=== PATIENT | male | born 1985 | race Two or more races ===

== ENCOUNTER 2020-04-28 16:15 | Inpatient (IN) | payer OTHER ==
[~2020-04-28] VITALS: Ht 175.3 cm; Wt 74.8 kg
== END 2020-05-01 14:13 | disposition home or self-care (01) | DRG 866 ==
LOC: ER 16:15 → SEC-K 19:16 → MEDI 04-29 09:04 → MEDJ 04-29 09:04 → MEDI 04-29 09:04
PROVIDERS: ADMIT Internal Medicine; ATTEND Internal Medicine
DX: A90 Dengue fever [classical dengue] (principal); Z20.828 Contact with and (suspected) exposure to other viral communicable diseases

== ENCOUNTER 2021-07-21 12:22 | Emergency (ER) | payer OTHER ==
[~2021-07-21] VITALS: Ht 175.3 cm; Wt 72.6 kg
== END 2021-07-21 14:34 | disposition home or self-care (01) ==
LOC: ER 12:22
DX: M54.50 Low back pain, unspecified (principal); K29.70 Gastritis, unspecified, without bleeding

== ENCOUNTER 2021-08-04 09:52 | Emergency (ER) | payer OTHER ==
[~2021-08-04] VITALS: Ht 172.7 cm; Wt 72.6 kg
== END 2021-08-04 13:25 | disposition home or self-care (01) ==
LOC: ER 09:52
DX: R10.9 Unspecified abdominal pain (principal); Z91.013 Allergy to seafood

== ENCOUNTER 2021-09-21 21:04 | Inpatient (IN) | payer OTHER ==
[~2021-09-21] VITALS: Ht 175.3 cm; Wt 70.3 kg
[2021-09-28] MEDS ORDERED: METRONIDAZOLE500 MG PO (09:20)
[2021-09-28] MEDS ORDERED: MEDROLPACK PO (09:20)
[2021-09-28] MEDS ORDERED: CIPRO500 MG PO (09:20)
== END 2021-09-28 09:59 | disposition home or self-care (01) | DRG 392 ==
LOC: ER 21:04 → MEDI 09-22 13:23 → MEDJ 09-23 16:19 → MEDI 09-23 16:39
PROVIDERS: ADMIT Internal Medicine; ATTEND Internal Medicine
PROC: 3E0F7GC Introduction of Other Therapeutic Substance into Respiratory Tract, Via Natural or Artificial Opening (ICD-10-PCS; principal; 2021-09-23)
PROC: 8E0ZXY6 Isolation (ICD-10-PCS; 2021-09-23)
DX: K52.81 Eosinophilic gastritis or gastroenteritis (principal); E86.0 Dehydration; J45.998 Other asthma; Z20.822 Contact with and (suspected) exposure to COVID-19

== ENCOUNTER 2021-12-03 00:26 | Emergency (ER) | payer OTHER ==
[~2021-12-03] VITALS: Ht 172.7 cm; Wt 68.0 kg
[~2021-12-03 00:26] MED LIST: CIPRO500 MG PO; MEDROLPACK PO; METRONIDAZOLE500 MG PO
[2021-12-03] MEDS ORDERED: PEPCID20 MG PO (00:49)
== END 2021-12-03 09:51 | disposition home or self-care (01) ==
LOC: ER 00:26
DX: B34.9 Viral infection, unspecified (principal); E86.0 Dehydration; R10.84 Generalized abdominal pain; R11.10 Vomiting, unspecified; R30.0 Dysuria

== ENCOUNTER 2022-05-13 17:41 | Emergency (ER) | payer OTHER ==
[~2022-05-13] VITALS: Ht 165.1 cm; Wt 68.0 kg
[~2022-05-13 17:41] MED LIST changes: +PEPCID20 MG PO
== END 2022-05-14 02:48 | disposition home or self-care (01) ==
LOC: ER 17:41
DX: R10.84 Generalized abdominal pain (principal)

== ENCOUNTER 2022-09-05 11:33 | Emergency (ER) | payer OTHER ==
[~2022-09-05] VITALS: Ht 175.3 cm; Wt 63.5 kg
== END 2022-09-05 17:09 | disposition home or self-care (01) ==
LOC: ER 11:33
DX: R19.7 Diarrhea, unspecified (principal); Z85.038 Personal history of other malignant neoplasm of large intestine

== ENCOUNTER 2024-07-10 06:08 | Inpatient (IN) | payer OTHER ==
[~2024-07-10] VITALS: Ht 172.7 cm; Wt 62.6 kg
[2024-07-10] MEDS ORDERED: 0.9 % SODIUM CHLORIDE 1,000 ML IV ONE (07:15)
[2024-07-10] MEDS ORDERED: FAMOTIDINE/PF 20 MG/2 ML VIAL IV PUSH STA (07:15)
[2024-07-10] MEDS ORDERED: ONDANSETRON HCL 2 MG/ML VIAL IV STA (07:15)
[2024-07-10] MEDS ORDERED: ONDANSETRON HCL 2 MG/ML VIAL ONE (07:30)
[2024-07-10] MEDS ORDERED: FAMOTIDINE/PF 20 MG/2 ML VIAL ONE (07:31)
[2024-07-10] MEDS ORDERED: MEPERIDINE HCL/PF 50 MG/ML VIAL IM STA (07:44)
[2024-07-10 07:50] LABS: HEMATOCRIT 32.7 % (39.0-48.0); MEAN CELL VOLUME 81.5 fL (80.0-100.00); MEAN CORPUSCULAR HEMOGLOBIN 27.3 pg (27.00-32.0); MEAN CORPUSCULAR HGB CONC 33.5 g/dl (32.0-36.0); PLATELET COUNT 728 K/uL (150-450); RED BLOOD COUNT 4.02 M/uL (4.00-6.00)
[2024-07-10 07:52] LABS: RED CELL DISTRIBUTION WIDTH 19.4 % (11.5-14.5)
[2024-07-10] MEDS ORDERED: ALBUTEROL SULFATE 3 ML/2.5 MG AMPUL.NEB IH STA (08:00)
[2024-07-10] MEDS ORDERED: CEFTRIAXONE SODIUM 1,000 MG VIAL IV STA (08:02)
[2024-07-10] MEDS ORDERED: ALBUTEROL SULFATE 3 ML/2.5 MG AMPUL.NEB IH ONE ×2 (08:10→12:52)
[2024-07-10] MEDS ORDERED: CEFTRIAXONE SODIUM 2,000 MG VIAL ONE ×2 (08:15→15:18)
[2024-07-10] MEDS ORDERED: CEFTRIAXONE SODIUM 1,000 MG VIAL ONE (08:17)
[2024-07-10 08:30] LABS: INR 1.02; PROTHROMBIN TIME 11.1 SECONDS (9.0-11.5)
[2024-07-10 08:31] LABS: ABG PH 7.414 (7.35-7.45); ABG pCO2 45.8 mmHg (35-45); BASE EXCESS 3.4 mmol/l; BICARBONATE 28.7 mmol/l (23-25); SaO2 89.9 %; Tco2 30.1 mmol/l
[2024-07-10 09:05] LABS: URINE APPEARANCE Cloudy; URINE BILIRRUBIN Negative (NEGATIVE); URINE BLOOD Large; URINE COLOR Yellow; URINE GLUCOSE Negative (NEGATIVE); URINE KETONE Negative (NEGATIVE); URINE LEUKOCYTE Large; URINE NITRATE Negative
[2024-07-10 09:06] LABS: URINE CAST 12.96 uL (0.0-1.40); URINE EPITHELIAL CELLS 25.3 uL (0.0-38.8); URINE RBC 66.1 uL (0.0-20.8); URINE WBC 485.1 uL (0.0-23.2)
[2024-07-10 09:07] LABS: URINE BACTERIA > 9821.5 uL (0.0-1933); URINE PROTEIN 100 (NEGATIVE)
[2024-07-10 09:21] LABS: URINE CRYSTALS MANY /HPF; URINE YEAST FEW /hpf
[2024-07-10 09:52] LABS: ABG PO2 56.9 mmHg (80-100); allen test SATISFACTORY; o2 21 %; puncture site RADIAL RIGHT
[2024-07-10 10:00] LABS: ALBUMIN 2.3 gm/dL (3.4-5.0); BILIRUBIN TOTAL 0.47 mg/dL (0.3-1.2); CALCIUM 8.9 mg/dL (8.5-10.1); CREATININE SERUM 0.38 mg/dL (0.70-1.30); GFR 254.09; GLOBULINA 4.7 G/DL (2.4-3.5); POTASSIUM 4.08 mEq/L (3.5-5.1)
[2024-07-10] MEDS ORDERED: ALBUTEROL SULFATE 3 ML/2.5 MG AMPUL.NEB IH SCH (10:00)
[2024-07-10] MEDS ORDERED: CEFTRIAXONE SODIUM 2,000 MG in 0.9 % SODIUM CHLORIDE 100 ML IV SCH (13:11)
[2024-07-10] MEDS ORDERED: ACETAMINOPHEN 325 MG TABLET PO PRN (13:15)
[2024-07-10] MEDS ORDERED: 0.9 % SODIUM CHLORIDE 1,000 ML IV SCH (13:30)
[2024-07-10] MEDS ORDERED: MEPERIDINE HCL/PF 50 MG/ML VIAL IM PRN (13:45)
[2024-07-10 16:17] VITALS: BP 143/97; O2SAT 98
[2024-07-10] MEDS ORDERED: ACETAMINOPHEN 500 MG GEL..CAP PO PRN (18:45)
[2024-07-10 22:59] VITALS: BP 120/92
[2024-07-11 09:02] VITALS: BP 139/99
[2024-07-11 17:36] VITALS: BP 140/87; O2SAT 98
[2024-07-12 02:41] VITALS: BP 140/93
[2024-07-12 09:08] VITALS: BP 140/80
[2024-07-12] MEDS ORDERED: FAMOTIDINE/PF 20 MG/2 ML VIAL IV SCH (12:08)
[2024-07-12] MEDS ORDERED: METOCLOPRAMIDE HCL 5 MG/ML VIAL IV PRN (12:15)
[2024-07-12 16:00] VITALS: BP 131/90
[2024-07-13 02:03] VITALS: BP 142/99; O2SAT 97
[2024-07-13 08:55] VITALS: BP 146/100; O2SAT 95
[2024-07-13 16:00] VITALS: BP 137/98
[2024-07-13] MEDS ORDERED: LACTULOSE 20 G/30 ML BLIST.PACK PO NR (17:00)
[2024-07-13] MEDS ORDERED: MAGNESIUM HYDROXIDE 30 ML BLIST.PACK PO NR (17:00)
[2024-07-13] MEDS ORDERED: MINERAL OIL 30 ML BLIST.PACK PO NR (17:00)
[2024-07-14 01:43] VITALS: BP 137/98
[2024-07-14 07:12] LABS: HEMATOCRIT 31.9 % (39.0-48.0); HEMOGLOBIN 10.5 g/dL (13-16.00); MEAN CELL VOLUME 82.5 fL (80.0-100.00); MEAN CORPUSCULAR HEMOGLOBIN 27.1 pg (27.00-32.0); MEAN CORPUSCULAR HGB CONC 32.9 g/dl (32.0-36.0); PLATELET COUNT 547 K/uL (150-450); RED BLOOD COUNT 3.87 M/uL (4.00-6.00); RED CELL DISTRIBUTION WIDTH 20.1 % (11.5-14.5)
[2024-07-14 07:14] LABS: ALBUMIN 2.3 gm/dL (3.4-5.0); BILIRUBIN TOTAL 0.42 mg/dL (0.3-1.2); CALCIUM 8.7 mg/dL (8.5-10.1); CREATININE SERUM 0.37 mg/dL (0.70-1.30); GFR 262.03; GLOBULINA 4.4 G/DL (2.4-3.5); POTASSIUM 3.83 mEq/L (3.5-5.1); TOTAL PROTEIN 6.7 gm/dL (6.4-8.2)
[2024-07-14 08:45] VITALS: BP 136/94; O2SAT 98
[2024-07-14] MEDS ORDERED: ALBUTEROL SULFATE 3 ML/2.5 MG AMPUL.NEB IH SCH (11:14)
[2024-07-14] MEDS ORDERED: MEPERIDINE HCL/PF 50 MG/ML VIAL IM PRN (14:30)
[2024-07-14 17:21] VITALS: BP 142/104; O2SAT 95
[2024-07-15 00:43] VITALS: BP 152/106; O2SAT 100
[2024-07-15 04:29] VITALS: BP 149/96
[2024-07-15 08:34] VITALS: BP 142/103; O2SAT 99
== END 2024-07-15 10:13 | disposition home or self-care (01) | DRG 690 ==
LOC: ER 06:10 → MEDI 14:23
PROVIDERS: General Practice; ADMIT Internal Medicine; ATTEND Internal Medicine
PROC: BW24ZZZ Computerized Tomography (CT Scan) of Chest and Abdomen (ICD-10-PCS; principal; 2024-07-10)
PROC: BW24YZZ Computerized Tomography (CT Scan) of Chest and Abdomen using Other Contrast (ICD-10-PCS; 2024-07-11)
DX: N39.0 Urinary tract infection, site not specified (principal); J90 Pleural effusion, not elsewhere classified; C18.9 Malignant neoplasm of colon, unspecified; C78.6 Secondary malignant neoplasm of retroperitoneum and peritoneum; R09.02 Hypoxemia; E86.0 Dehydration; D75.839 Thrombocytosis, unspecified; D63.0 Anemia in neoplastic disease; B96.1 Klebsiella pneumoniae [K. pneumoniae] as the cause of diseases classified elsewhere; B96.20 Unspecified Escherichia coli [E. coli] as the cause of diseases classified elsewhere

== ENCOUNTER 2024-07-16 11:57 | Inpatient (IN) | payer OTHER ==
[~2024-07-16] VITALS: Ht 172.7 cm; Wt 52.2 kg
[2024-07-16] MEDS ORDERED: PROMETHAZINE HCL 25 MG/ML AMPUL IM ONE (13:30)
[2024-07-16] MEDS ORDERED: MEPERIDINE HCL/PF 50 MG/ML VIAL IM ONE (13:30)
[2024-07-16] MEDS ORDERED: 0.9 % SODIUM CHLORIDE 1,000 ML IV SCH ×2 (13:45→20:00)
[2024-07-16] MEDS ORDERED: PROMETHAZINE HCL 25 MG/ML AMPUL ONE (13:54)
[2024-07-16 14:35] LABS: PH,URINE 6.5 (5.0-8.0); URINE APPEARANCE Cloudy; URINE BILIRRUBIN Negative (NEGATIVE); URINE BLOOD Large; URINE COLOR Yellow; URINE GLUCOSE Negative (NEGATIVE); URINE KETONE 15 (NEGATIVE); URINE LEUKOCYTE Large; URINE NITRATE Positive
[2024-07-16 14:35] LABS: HEMATOCRIT 38.2 % (39.0-48.0); HEMOGLOBIN 12.9 g/dL (13-16.00); MEAN CELL VOLUME 81.4 fL (80.0-100.00); MEAN CORPUSCULAR HEMOGLOBIN 27.4 pg (27.00-32.0); MEAN CORPUSCULAR HGB CONC 33.7 g/dl (32.0-36.0); PLATELET COUNT 661 K/uL (150-450); RED CELL DISTRIBUTION WIDTH 19.9 % (11.5-14.5)
[2024-07-16 14:39] LABS: URINE BACTERIA 990.1 uL (0.0-1933); URINE EPITHELIAL CELLS 1.5 uL (0.0-38.8); URINE RBC 1364.9 uL (0.0-20.8); URINE WBC 457.1 uL (0.0-23.2)
[2024-07-16 15:02] LABS: BILIRUBIN TOTAL 0.51 mg/dL (0.3-1.2); CALCIUM 9.7 mg/dL (8.5-10.1); CREATININE SERUM 0.49 mg/dL (0.70-1.30); GFR 189.48; GLOBULINA 5.5 G/DL (2.4-3.5); POTASSIUM 3.86 mEq/L (3.5-5.1); TOTAL PROTEIN 8.5 gm/dL (6.4-8.2)
[2024-07-16 15:02] LABS: URINE PROTEIN 300 (NEGATIVE)
[2024-07-16 15:04] LABS: URINE CAST 1.32 uL (0.0-1.40); URINE MUCUS SCANT
[2024-07-16 15:05] LABS: URINE YEAST MODERATE /hpf
[2024-07-16] MEDS ORDERED: IPRATROPIUM/ALBUTEROL SULFATE 3 ML AMPUL.NEB IH STA (16:33)
[2024-07-16] MEDS ORDERED: METHYLPREDNISOLONE SOD SUCC 125 MG VIAL IV STA (16:34)
[2024-07-16] MEDS ORDERED: METHYLPREDNISOLONE SOD SUCC 125 MG VIAL ONE (16:37)
[2024-07-16] MEDS ORDERED: 0.9 % SODIUM CHLORIDE 1,000 ML IV STA (16:37)
[2024-07-16] MEDS ORDERED: ENALAPRILAT DIHYDRATE 1.25 MG/ML VIAL IV SCH (16:45)
[2024-07-16] MEDS ORDERED: ENALAPRILAT DIHYDRATE 1.25 MG/ML VIAL IV ONE ×2 (16:47→22:51)
[2024-07-16] MEDS ORDERED: IPRATROPIUM/ALBUTEROL SULFATE 3 ML AMPUL.NEB IH ONE (17:04)
[2024-07-16 19:16] LABS: ABG PH 7.413 (7.35-7.45); ABG PO2 130.7 mmHg (80-100); ABG pCO2 48.5 mmHg (35-45); BASE EXCESS 4.6 mmol/l; BICARBONATE 30.3 mmol/l (23-25); Tco2 31.8 mmol/l; allen test SATISFACTORY; o2 28 %; puncture site RADIAL LEFT
[2024-07-16] MEDS ORDERED: levoFLOXacin IN DEXTROSE 5 % 150 ML IV SCH (20:13)
[2024-07-16] MEDS ORDERED: ACETAMINOPHEN 500 MG GEL..CAP PO PRN (20:15)
[2024-07-16] MEDS ORDERED: MORPHINE SULFATE 4 MG/ML CARTRIDGE IV ONE ×2 (20:30)
[2024-07-16] MEDS ORDERED: IPRATROPIUM BROMIDE 0.5 MG/2.5 ML AMPUL.NEB IH SCH (21:00)
[2024-07-16] MEDS ORDERED: MORPHINE SULFATE 4 MG/ML CARTRIDGE IV SCH (21:00)
[2024-07-16] MEDS ORDERED: METHYLPREDNISOLONE SOD SUCC 40 MG VIAL IV SCH (21:00)
[2024-07-16] MEDS ORDERED: LEVALBUTEROL HCL 1.25 MG/3 ML SOLUTION IH SCH (21:00)
[2024-07-16] MEDS ORDERED: METHYLPREDNISOLONE SOD SUCC 40 MG VIAL ONE (21:27)
[2024-07-16 22:33] LABS: D DIMER 5.23 MG/L; INR 1.05; PARTIAL THROMBOPLASTIN TIME 25.9 SECONDS (22.0-34.0); PROTHROMBIN TIME 11.4 SECONDS (9.0-11.5)
[2024-07-16] MEDS ORDERED: 0.9 % SODIUM CHLORIDE 1,000 ML IV ONE (22:45)
[2024-07-16] MEDS ORDERED: ENALAPRILAT DIHYDRATE 1.25 MG/ML VIAL IV STA (22:54)
[2024-07-16] MEDS ORDERED: METOPROLOL SUCCINATE 50 MG TAB.SR.24H PO STA (22:54)
[2024-07-16 22:58] VITALS: BP 140/100; O2SAT 100
[2024-07-16] MEDS ORDERED: ONDANSETRON HCL 2 MG/ML VIAL ONE (23:15)
[2024-07-16] MEDS ORDERED: ONDANSETRON HCL 2 MG/ML VIAL IV STA (23:24)
[2024-07-17] MEDS ORDERED: MORPHINE SULFATE 4 MG/ML CARTRIDGE IV PRN (00:15)
[2024-07-17] MEDS ORDERED: LEVALBUTEROL HCL 1.25 MG/3 ML SOLUTION IH ONE ×2 (00:37→05:09)
[2024-07-17] MEDS ORDERED: IPRATROPIUM BROMIDE 0.5 MG/2.5 ML AMPUL.NEB IH ONE ×2 (00:37→05:10)
[2024-07-17 01:01] VITALS: BP 146/94; O2SAT 99
[2024-07-17] MEDS ORDERED: FAMOTIDINE/PF 20 MG/2 ML VIAL ONE ×2 (01:12→09:28)
[2024-07-17 07:34] VITALS: BP 140/90; O2SAT 99
[2024-07-17] MEDS ORDERED: MEPERIDINE HCL/PF 50 MG/ML VIAL IV PRN (07:45)
[2024-07-17] MEDS ORDERED: FAMOTIDINE/PF 20 MG in 0.9 % SODIUM CHLORIDE 8 ML IV PUSH SCH (09:00)
[2024-07-17] MEDS ORDERED: ENOXAPARIN SODIUM 40 MG/0.4 ML SYRINGE SUBCUTANEO SCH (09:00)
[2024-07-17 09:08] LABS: ABG PH 7.422 (7.35-7.45); ABG PO2 79.3 mmHg (80-100); ABG pCO2 49.6 mmHg (35-45); BASE EXCESS 5.9 mmol/l; BICARBONATE 31.6 mmol/l (23-25); SaO2 96.1 %; Tco2 33.1 mmol/l
[2024-07-17 09:26] LABS: allen test SATISFACTORY; o2 21 %; puncture site RADIAL RIGHT
[2024-07-17] MEDS ORDERED: levoFLOXacin IN DEXTROSE 5 % 5 MG/ML PIGGYBAG IV ONE (09:28)
[2024-07-17] MEDS ORDERED: ONDANSETRON HCL 2 MG/ML VIAL IV PRN (12:30)
[2024-07-17] MEDS ORDERED: ONDANSETRON HCL 2 MG/ML VIAL ONE (12:32)
[2024-07-17 17:22] VITALS: BP 130/87; O2SAT 95
[2024-07-17] MEDS ORDERED: CIPROFLOXACIN IN 5 % DEXTROSE 200 ML IV SCH (21:00)
[2024-07-18 01:43] VITALS: BP 136/86
[2024-07-18 12:24] VITALS: BP 140/92
[2024-07-18 16:56] VITALS: BP 140/80
[2024-07-18] MEDS ORDERED: METOCLOPRAMIDE HCL 5 MG/ML VIAL IV SCH (21:48)
[2024-07-18] MEDS ORDERED: METOCLOPRAMIDE HCL 5 MG/ML VIAL IV STA (21:48)
[2024-07-19 00:48] VITALS: BP 119/80
[2024-07-19] MEDS ORDERED: MEPERIDINE HCL/PF 50 MG/ML VIAL IM PRN (08:00)
[2024-07-19 08:51] VITALS: BP 147/90; O2SAT 97
[2024-07-19] MEDS ORDERED: MEPERIDINE HCL/PF 50 MG/ML VIAL IV PRN (15:01)
[2024-07-19] MEDS ORDERED: POLYETHYLENE GLYCOL 3350 17 GM BLIST.PACK PO SCH (17:00)
[2024-07-19 17:21] VITALS: BP 153/96
[2024-07-19] MEDS ORDERED: FAMOTIDINE/PF 20 MG in 0.9 % SODIUM CHLORIDE 8 ML IV PUSH SCH (21:00)
[2024-07-20 00:35] VITALS: BP 138/92
[2024-07-20 09:26] VITALS: BP 145/90; O2SAT 96
[2024-07-20 18:21] VITALS: BP 153/109
[2024-07-20] MEDS ORDERED: MORPHINE SULFATE 4 MG/ML CARTRIDGE IV PRN (19:15)
[2024-07-20] MEDS ORDERED: POLYETHYLENE GLYCOL 3350 17 GM BLIST.PACK PO SCH (21:00)
[2024-07-21] MEDS ORDERED: MORPHINE SULFATE 4 MG/ML CARTRIDGE IV PRN (00:09)
[2024-07-21 00:32] VITALS: BP 163/107
[2024-07-21] MEDS ORDERED: MORPHINE SULFATE 4 MG/ML CARTRIDGE IV ONE (00:45)
[2024-07-21 08:58] VITALS: BP 160/90; O2SAT 96
[2024-07-21] MEDS ORDERED: LOSARTAN POTASSIUM 50 MG TABLET PO SCH (12:15)
[2024-07-21 17:23] VITALS: BP 154/85
[2024-07-21] MEDS ORDERED: IOVERSOL 320 MG/ML - 50 ML VIAL IV ONE ×2 (19:44→20:51)
[2024-07-21] MEDS ORDERED: BUPIVACAINE HCL/Mpf 0.5% 10ML VIAL ONE ×2 (19:44→20:51)
[2024-07-21] MEDS ORDERED: CIPROFLOXACIN IN 5 % DEXTROSE 400 MG/200 ML PIGGYBAG IV ONE (21:36)
[2024-07-21] MEDS ORDERED: FAMOTIDINE/PF 20 MG/2 ML VIAL ONE (21:44)
[2024-07-21] MEDS ORDERED: MORPHINE SULFATE 4 MG/ML VIAL IV ONE (21:50)
[2024-07-21] MEDS ORDERED: hydrALAZINE HCL 20 MG VIAL ONE (21:50)
[2024-07-22 02:18] VITALS: BP 159/90; O2SAT 99
[2024-07-22 08:00] VITALS: BP 159/96
[2024-07-22 09:00] VITALS: BP 140/80
[2024-07-22 12:31] LABS: PH,URINE 5.5 (5.0-8.0); URINE APPEARANCE Turbid; URINE BACTERIA 487.1 uL (0.0-1933); URINE BILIRRUBIN Small (NEGATIVE); URINE BLOOD Moderate; URINE CAST 1.85 uL (0.0-1.40); URINE COLOR Red; URINE EPITHELIAL CELLS 2.3 uL (0.0-38.8); URINE GLUCOSE Negative (NEGATIVE); URINE KETONE Trace (NEGATIVE); URINE LEUKOCYTE Moderate; URINE NITRATE Negative; URINE UROBILINOGEN 0.2 E.U./dl; URINE WBC 1137.4 uL (0.0-23.2)
[2024-07-22 12:51] LABS: URINE PROTEIN 100 (NEGATIVE); URINE RBC > 10558.9 uL (0.0-20.8)
[2024-07-22 17:19] LABS: HEMATOCRIT 28.5 % (39.0-48.0); MEAN CELL VOLUME 82.5 fL (80.0-100.00); MEAN CORPUSCULAR HGB CONC 33.9 g/dl (32.0-36.0); PLATELET COUNT 340 K/uL (150-450); RED BLOOD COUNT 3.46 M/uL (4.00-6.00); RED CELL DISTRIBUTION WIDTH 20.7 % (11.5-14.5)
[2024-07-22 17:20] LABS: HEMOGLOBIN 9.7 g/dL (13-16.00)
[2024-07-22 17:45] VITALS: BP 160/86
[2024-07-22 17:58] LABS: ALBUMIN 2.5 gm/dL (3.4-5.0); BILIRUBIN TOTAL 0.42 mg/dL (0.3-1.2); CALCIUM 8.9 mg/dL (8.5-10.1); CREATININE SERUM 0.6 mg/dL (0.70-1.30); GFR 149.99; GLOBULINA 4.2 G/DL (2.4-3.5); POTASSIUM 3.05 mEq/L (3.5-5.1); TOTAL PROTEIN 6.7 gm/dL (6.4-8.2)
[2024-07-23] MEDS ORDERED: MORPHINE SULFATE 4 MG/ML CARTRIDGE IV PRN (00:45)
[2024-07-23 01:00] VITALS: BP 168/100
== END 2024-07-23 07:29 | disposition left against medical advice (07) | DRG 689 ==
LOC: ER 11:59 → SEC-K 20:52 → MEDJ 20:52
PROVIDERS: General Practice; Radiology Vascular & Interventional Radiology; ADMIT Internal Medicine; ATTEND Internal Medicine
PROC: 0T933ZZ Drainage of Right Kidney Pelvis, Percutaneous Approach (ICD-10-PCS; principal; 2024-07-21 19:00)
DX: N39.0 Urinary tract infection, site not specified (principal); J18.9 Pneumonia, unspecified organism; J90 Pleural effusion, not elsewhere classified; R06.02 Shortness of breath; R09.02 Hypoxemia; N13.5 Crossing vessel and stricture of ureter without hydronephrosis; K81.1 Chronic cholecystitis